=== PATIENT | female | born 1975 | race Caucasian/White ===

== ENCOUNTER 2016-09-25 09:22 | Day surgery (SDC) | payer OTHER ==
--- NOTE | 2016-09-16 03:37 | HP ---
PREOPERATIVE HISTORY AND PHYSICAL: DATE OF ADMISSION/SURGERY: 09/25/16 [facility] DATE OF OFFICE VISIT: 09/13/16 ATTENDING SURGEON: Dr. Parul Ordonez. (DICTATED BY ARVIND HERNANDEZ) PROCEDURE: Right arthroscopic surgery, arthroscopic partial meniscectomy. CHIEF COMPLAINT: Right knee pain. HISTORY OF PRESENT ILLNESS: Rossana is a 41-year-old female who presents to clinic for followup of ongoing right knee pain due to meniscus injury. She failed conservative measures and therefore agreed to undergo right knee arthroscopic surgery, arthroscopic partial meniscectomy with Dr. Ordonez on 09/25. PAST MEDICAL HISTORY: Hypothyroidism. PAST SURGICAL HISTORY: 1. Total thyroidectomy in 2006. 2. x2. Denies complications with anesthesia. MEDICATIONS: Levothyroxine sodium 112 mcg 1 by mouth every day. ALLERGIES: No known drug allergies. FAMILY HISTORY: Positive for heart disease, rheumatoid arthritis, and CMP. Her grandmother has a history of DVT. SOCIAL HISTORY: She lives with her spouse. 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 She denies tobacco or alcohol use. REVIEW OF SYSTEMS: General: Negative for fevers, chills, or night sweats. No known anesthesia problems. HEENT: Negative for headache, lightheadedness, or syncopal episodes. Integumentary: Negative for abrasions, lesions, or open wounds. Cardiothoracic: Negative for chest pain, palpitations, or edema. Negative for hypertension. Pulmonary: Negative for shortness of breath with exertion, chronic cough, or COPD. GI: Negative for nausea, vomiting, diarrhea , constipation, or GERD. : Negative for nocturia, urinary frequency, urinary urgency, history of UTIs, or kidney problems. Musculoskeletal: Positive for current complaint. Neurological: Negative for numbness, tingling , history of seizure, stroke, or epilepsy. Endocrine: Negative for diabetes. Positive for hypothyroidism. Heme: Negative for easy bruising, anemia, excessive bleeding, history of DVT, or PE. Infectious Disease: Negative for history of MRSA. PHYSICAL EXAMINATION GENERAL: Well-developed, well-nourished 41-year-old female, in no acute distress. Alert and oriented x3. Appropriate mood and affect. VITAL SIGNS: Height 64, weight 115, blood pressure 101/63, respiratory rate 13 , temperature 98.6, BMI 19.7. HEENT: Normocephalic, atraumatic. PERRLA. Throat clear. NECK: Supple. PULMONARY: Lungs clear to auscultation bilaterally. No wheezing, rhonchi, or rales. CARDIO: Regular rate and rhythm. S1, S2. No murmurs, gallops, or rubs. No edema. ABDOMEN: Positive bowel sounds. Soft, nontender. NEUROLOGIC: Alert and oriented x3. Cranial nerves grossly intact. Sensation intact to light touch. MUSCULOSKELETAL: Right lower extremity: Skin is intact. Trace effusion. Range of motion 0 to 120. Quadriceps atrophy. Tenderness over the lateral joint line. 1A Bibiana. Nontender to varus or valgus stress. Positive Jc. +2 dorsalis pedis pulse. Sensation intact to light touch distally. STUDIES: MRI revealed partial thickness tear of the ACL, lateral meniscus tear , and an LCL sprain. IMPRESSION: Right knee lateral meniscus tear. PLAN: The patient is scheduled to undergo a right knee arthroscopic surgery, arthroscopic partial meniscectomy with Dr. Ordonez on 09/25/16. She will return to the office 10 to 14 days postop for followup and suture removal. Percocet will be used for postoperative pain management. ARVIND HERNANDEZ [id number]/[facility] #: [id number] MTDD
[~2016-09-25 09:22] MED LIST: Buffered Lidocaine 0.9% SYRIN* 5 ML/SYR SYRINGE INTRADERM ONE; Dexamethasone IV* 4 MG/ML 1 ML (4 MG) IV SLOW PU ONE; Famotidine IV* 10 MG/ML 2 ML (20 mg) IV ONE
[2016-09-25] MEDS ORDERED: Buffered Lidocaine 0.9% SYRIN* 5 ML/SYR SYRINGE ONE (10:28)
[2016-09-25] MEDS ORDERED: Famotidine IV* 10 MG/ML 2 ML (20 mg) ONE (10:28)
[2016-09-25] MEDS ORDERED: Dexamethasone IV* 4 MG/ML 1 ML (4 MG) ONE (10:28)
[2016-09-25] MEDS ORDERED: ceFAZolin 2 GM PREMIX(*) 2 GM/50 ML BAG IVPB ONE (10:28)
[2016-09-25] MEDS ORDERED: Midazolam* 1 MG/ML 5 ML VIAL (5 MG) ONE (11:01)
[2016-09-25] MEDS ORDERED: Ketorolac INJ* 30 MG/ML 1 ML VIAL ONE (11:01)
[2016-09-25] MEDS ORDERED: Ondansetron INJ* 2 MG/ML VIAL ONE (11:01)
[2016-09-25] MEDS ORDERED: Chloroprocaine 2%* 20 ML VIAL ONE (11:01)
[2016-09-25] MEDS ORDERED: Propofol* 10 MG/ML 20 ML BTL IV PUSH ONE ×2 (11:01)
[2016-09-25] MEDS ORDERED: Bupivacaine 0.25% SDV* 30 ML ONE (11:49)
[2016-09-25] MEDS ORDERED: Bupivacaine 0.25% W/EPI* 50 ML VIAL ONE (11:53)
[2016-09-25] MEDS ORDERED: Bupivacaine 0.5% W/EPI SDV* 30 ML VIAL ONE (12:13)
[2016-09-25] MEDS ORDERED: DiMENhydriNATE IV* 50 MG/ML VIAL IV PUSH PRN (13:18)
[2016-09-25] MEDS ORDERED: Ondansetron INJ* 2 MG/ML VIAL IV PRN (13:18)
[2016-09-25] MEDS ORDERED: fentaNYL* 50 MCG/ML 2 ML VIAL (100 MCG VIAL) IV PRN (13:18)
[2016-09-25] MEDS ORDERED: oxyCODONE/Acetamin 5/325 MG* TAB PO PRN (13:18)
[2016-09-25 15:32] VITALS: BP 100/69
--- NOTE | 2016-09-29 04:45 | OP ---
CC: PCP OPERATIVE REPORT: DATE OF OPERATION: 09/25/16 DATE OF : 79 SURGEON: Parul Ordonez MD QA ARCHITECT: No assistant program manager was needed for this case. ANESTHESIOLOGIST: Dr. Weir. ANESTHESIA: Spinal with local MAC. PRE-OP DIAGNOSIS: Right knee partial tear in the ACL as well as lateral meniscus tear. POST-OP DIAGNOSIS: Partial tear of right ACL, lateral meniscus tear and plica. OPERATIVE PROCEDURE: Right knee arthroscopy with partial lateral meniscectomy as well as plica exci pietro. COMPLICATIONS: None. ESTIMATED BLOOD LOSS: Minimal. TOURNIQUET TIME: Zero minutes. INDICATIONS: Rossana Juarez is a 41-year-old female who sustained injury to her knee earlier thi s year. She has failed conservative management, which consisted of physical therapy and she had per sistent catching and locking and laterally based pain. She did have an ACL injury. She did not hav e complaints of instability. After an extensive discussion of the risks and benefits of surgical darius doron nonoperative treatment, she has elected to proceed with surgical treatment. Risks included, but are not limited to bleeding, infection, damage to nerves, vessels, surrounding structures, wound no nhealing, persistent pain, need for further surgery, stiffness, incomplete relief of symptoms, need for further surgery, risk of anesthesia, risk of DVT. She has elected to proceed. DESCRIPTION OF PROCEDURE: The patient was greeted in the preoperative area by the attending surgeon . Correct extremity was marked and consent was confirmed. The patient was brought back to the oper ating suite, where she was placed in supine position on the operating table. She was then sat up an d underwent spinal anesthesia, which she tolerated without difficulty. A tourniquet was placed high on the proximal right leg. A miniature surgical pause was then done and then the knee was intra-ar ticularly injected with 0.25% Marcaine with epi. The lateral post was positioned. Examination of t he knee was done under anesthesia and she was found to have full range of motion with 0 to 140 degre es, 1A Bibiana, stable to varus and valgus stress, negative posterior drawer, mild effusion. [facility] then [facility] and draped in the usual sterile beginning with chlorhexidine soap, scrub, a nd alcohol wipe and a final prep of ChloraPrep. After appropriate surgical pause indicating side, site, procedure, administration of antibiotics, th e standard anterior and lateral portal was made sharply with an 11 blade. The scope was introduced to the joint. The joint was examined and the scope was positioned in the suprapatellar pouch. Ther e were grade 0 changes to the patellofemoral joint. Lateral gutter was free of any loose tissue or debris. The medial gutter was secured by plica. The scope was introduced into the notch. The ACL was found to be intact, but there was evidence of partial tearing. The majority of the AM and PL bu ndles were intact as well. The PCL was intact. The scope was brought into the medial compartment. There were grade 0 to 1 changes in the medial femoral condyle and the medial tibial plateau. The m edial meniscus was probed and found to be stable. The knee was then placed in a [id number] posi tion and the lateral compartment was examined. There were grade 0 to 1 changes in the lateral femor al condyle and lateral tibial plateau. There was evidence of a full thickness bucket handle tear th at encompassed the middle to the posterior third of the meniscus. This was in the white-white zone. There was no evidence of hemorrhage. At this point, the biters and antonia were used to then perf orm a partial meniscectomy. She lost approximately 25% to may be 30% of her meniscus total. The te ar extended all the way to the vast majority. The meniscus was still intact. Once the partial meni scectomy was complete and all loose debris was removed, the knee was then placed in extension and th e electrocautery and shaver were used to remove the plica from the medial compartment. Once this wa s completely released, all fluid and debris was removed from the knee and the knee was thoroughly la vaged. The portals were closed with 3-0 nylon. The knee was intra-articularly injected with 0.25% Marcaine plain. Sterile dressings were applied as well as a cryo/Cuff. She was awoken from anesthe radha and transferred to the PACU in stable condition. POSTOPERATIVE PLAN: She will be weightbearing as tolerated. She will be discharged on her pain med ication. She will be discharged on aspirin for DVT prophylaxis; although, she has no personal or fa sunday history of DVT. I will see the patient back in 10 to 14 days. [id number]/[facility] #: [id number]
== END 2016-09-25 15:42 | disposition home or self-care (01) ==
LOC: OR 09:22
PROVIDERS: ATTEND Orthopaedic Surgery
DX: S83.251A Bucket-handle tear of lateral meniscus, current injury, right knee, initial encounter (principal); M67.51 Plica syndrome, right knee; E03.9 Hypothyroidism, unspecified; X58.XXXA Exposure to other specified factors, initial encounter; Y92.9 Unspecified place or not applicable
CPT/HCPCS: J0690; J1100; J1885; J2250; J2400; J2405; J2704

== ENCOUNTER 2018-07-23 11:00 | Observation (INO) | payer OTHER ==
[2018-07-23] MEDS ORDERED: Scopolamine 1.5 mg* PATCH ONE (11:53)
[2018-07-23] MEDS ORDERED: Naproxen TAB* 250 MG ONE (11:54)
[2018-07-23] MEDS ORDERED: Ondansetron INJ* 2 MG/ML VIAL ONE ×2 (11:54→12:37)
[2018-07-23] MEDS ORDERED: LORazepam TAB(*) 1 MG ONE (11:54)
[2018-07-23] MEDS ORDERED: oxyCODONE SR TAB(*) 10 MG TAB.SR ONE (11:54)
[2018-07-23] MEDS ORDERED: Clindamycin 900 MG/D5W BAG(*) 900 MG/50 ML BAG IVPB ONE (12:00)
[2018-07-23] MEDS ORDERED: Ketorolac INJ* 30 MG/ML 1 ML VIAL ONE (12:37)
[2018-07-23] MEDS ORDERED: VERAPAMIL 2.5 MG/ML 2 ML VIAL ** 5 mg/2 ml ONE (12:37)
[2018-07-23] MEDS ORDERED: fentaNYL* 50 MCG/ML 5 ML VIAL (250 MCG VIAL) ONE (12:37)
[2018-07-23] MEDS ORDERED: Midazolam* 1 MG/ML 5 ML VIAL (5 MG) ONE (12:37)
[2018-07-23] MEDS ORDERED: Heparin(*) 1000 UNIT/ML 10 ML VIAL CATH LAB IV ONE (12:37)
[2018-07-23] MEDS ORDERED: Heparin 2 UNITS/ML IVPREMIX* 2,000 UNIT/1,000 ML BAG IV ONE (12:38)
[2018-07-23] MEDS ORDERED: nitroGLYCERIN DRIP* 25,000 MCG/250 ML BTL ONE (12:38)
[2018-07-23] MEDS ORDERED: Lidocaine 1% INJ* 10 MG/ML 30 ML SDV ONE (12:39)
[2018-07-23] MEDS ORDERED: Iohexol 350 (CONTRAST) 200 ML MDV IV ONE (12:46)
[2018-07-23] MEDS ORDERED: HYDROmorphone PCA* 20 MG/20 ML PCA.SYRING ONE (14:06)
[2018-07-23] MEDS ORDERED: PROCHLORPERAZINE INJ 5 MG/ML 2 ML VIAL ONE ×2 (14:25→18:23)
[2018-07-23] MEDS ORDERED: Norepinephrine VIAL* 1 MG/ML 4 ML VIAL ONE (14:31)
[2018-07-23] MEDS ORDERED: Atropine SYRINGE* 0.1 MG/ML 10 ML SYRINGE (1 MG) ONE (14:48)
[2018-07-23] MEDS: NS 0.9% 1000 ML** 2,000 ML IV SCH ×2 (16:49→17:21)
[2018-07-23 17:09] LABS: ABS Basophils 0 10^3/ul (0-0.2); ABS Eosinophils 0 10^3/ul (0-0.6); ABS Lymphocytes 0.7 10^3/ul (1.0-4.8); ABS Monocytes 0.4 10^3/ul (0-0.8); ABS Neutrophils 6.3 10^3/ul (1.5-7.7); ABS Nucleated RBC 0 10^3/ul; Eosinophil % 0.4 %; Hematocrit 29 % (33-41); Hemoglobin 9.6 g/dL (12.0-16.0); Lymphocyte % 9.3 %; Mean Corpuscular HGB Conc 33 g/dL (31-36); Mean Corpuscular Hemoglobin 30 pg (27-31); Mean Corpuscular Volume 90 fL (80-97); Mean Platelet Volume 7.4 fL (7.4-10.4); Nucleated Red Blood Cells % 0; Platelet Count 209 10^3/uL (150-450); Red Blood Count 3.23 10^6 /uL (3.70-4.87); Red Cell Distribution Width 12 % (10.5-15); White Blood Count 7.5 10^3/uL (3.5-10.8)
[2018-07-23 17:32] LABS: Calcium 7.1 mg/dL (8.6-10.3); Magnesium 1.7 mg/dL (1.9-2.7); Potassium 4.2 mmol/L (3.5-5.0)
[2018-07-23 17:37] LABS: BUN/Creatinine Ratio 15.7 (8-20); EGFR African American 111.6 (>60); EGFR Non-African American 92.2 (>60)
[2018-07-23] MEDS ORDERED: Magnesium Sulfate 2 GM IV* 2 GM/50 ML BAG IVPB ONE (17:45)
[2018-07-23] MEDS ORDERED: PROCHLORPERAZINE INJ 5 MG/ML 2 ML VIAL IV PRN (17:50)
--- NOTE | 2018-07-23 18:43 | PN ---
Progress Note - Progress Note Date of Service: 07/23/18 SOAP: Subjective: Patient rates pelvic pain at 6/10. +/- nausea if she moves too much, but no emesis. Objective: Selected Entries 07/23/18 07/23/18 07/23/18 17:40 17:51 18:00 Pulse Rate 74 64 65 Blood Pressure 95/65 87/57 85/63 (mmHg) Blood Pressure Mean O2 Sat by Pulse Oximetry Patient on Room Air 07/23/18 07/23/18 07/23/18 18:01 18:10 18:15 Pulse Rate 64 62 Blood Pressure 86/61 (mmHg) Blood Pressure 66 Mean O2 Sat by Pulse 95 Oximetry Patient on Room Yes Air Sleeping, but arousable to voice AAO x 3, NAD Abd is soft, tender when palpating uterine fundus No rebound tenderness 1+ pulse palpated at left radial artery, soft, no ecchymosis Tegaderm covering small amount of dry blood Left hand is warm to touch Motor function is grossly intact, SILT at distribution of left R/M/U nerves Assessment: 43 YOF status Uterine Fibroid Arterial Embolization from left radial arteriomy. Case was complicated by exacerbation of the patient's baseline low BP with bradycardia. Patient received Levophed 32 mcg and Atropine 0.5 mg intraprocedure that restored BP and HR close to her baseline. Currently her BP is maintained with IVF. Plan: 1. Per conversation with Dr. Condon and Dr. Dawson, ICU overnight admission is appropriate to more closely monitor hemodynamics. 2. Otherwise routine post UFE IR protocol as ordered.
[2018-07-23] MEDS: NS 0.9% 1000 ML** 1,000 ML IV SCH (18:58)
--- NOTE | 2018-07-23 20:00 | HP ---
CC: Dr. Shun Miller; Dr. Davie Multani * HISTORY AND PHYSICAL: DATE OF ADMISSION: 07/23/18 TIME OF EVALUATION: 5:30 p.m. PRIMARY CARE PROVIDER: Shun Miller MD INTERVENTIONAL RADIOLOGIST: Davie Multani MD CHIEF COMPLAINT: "I am dizzy." HISTORY OF PRESENT ILLNESS: Mrs. Juarez is a 43-year-old lady with a past medical history of thyroid cancer status post thyroidectomy with subsequent hypothyroidism, depression, prior history of anorexia, mitral valve prolapse, uterine fibroids who [place] [facility] [place] uterine fibroid embolization. The patient saw Dr. Multani as outpatient regarding severe pelvic pain and heavy menstrual bleeding. Her pelvic ultrasound demonstrated 1 large well circumscribed 7.8 cm uterine fibroid and decision was made to pursue UFE for symptom control. The patient underwent the procedure today and as per Dr. Multani's report, the patient had episodes of bradycardia during the procedure. Of note is the fact that the patient is very fit, a runner, but later on during the procedure, she also developed hypotension that at one point reached a systolic of 56 and the patient required Levophed. At the time of my evaluation, the patient was already in the PACU. She has complaints of mild nausea and some dizziness while moving in bed, but otherwise she offers no other complaints. PAST MEDICAL HISTORY: 1. Thyroid cancer in 2006 status post thyroidectomy, now with hypothyroidism. 2. Depression. 3. History of anorexia nervosa. As per records in 1999, the patient has a history of "an NV" due to electrolyte imbalances secondary to her anorexia with a reported normal echo. The patient does not recall much of what happened around that time, but denies having issues with anorexia at this time. 4. Mitral valve prolapse. 5. Anxiety. 6. Status post in 2003 and 2007. MEDICATION LIST: 1. Tylenol/codeine 30 mg half a tablet p.o. q.6 hours p.r.n. pain. 2. Levothyroxine 112 mcg p.o. daily. 3. Ibuprofen 400 mg p.o. q.4 hours p.r.n. pain. ALLERGIES: No known drug allergies. FAMILY HISTORY: There is a history of heart disease, rheumatoid arthritis, and diabetes in remote family members, but her father and mother are alive and well. SOCIAL HISTORY: There is no history of tobacco or drug use. She occasionally consumes wine. 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 Surrogate decision maker is her , Pop Juarez, phone number is [phone]. REVIEW OF SYSTEMS: Limited, as the patient is still a little sedated after the procedure; but, as much as possible, a 14-point review of systems was performed and all pertinent negative and positive findings are in the HPI. PHYSICAL EXAMINATION GENERAL: The patient is a pleasant thin lady, lying in the bed in the PACU area , in no acute distress. VITAL SIGNS: Temperature 98.1, heart rate 74, respiratory rate 18, oxygen saturation 99% on room air, blood pressure is 95/65. HEENT: Moist mucous membranes. The patient has a scopolamine patch behind her right ear. CHEST: Breath sounds are present bilaterally with no added sounds. CVS: Normal S1, S2. Regular rate and rhythm. No murmurs. ABDOMEN: Soft. Bowel sounds are present. EXTREMITIES: No edema. The patient has post procedure band on her left wrist. NEURO: She is a little sleepy, but arousable to voice. Oriented x3. Able to move all 4 extremities. DIAGNOSTIC STUDIES/LAB DATA: Labs done after the procedure include a CBC with a WBC of 7.5, hemoglobin 9.6, hematocrit of 29, platelets of 209 with 84% neutrophils. Chemistry showed sodium 139, potassium 4.2, chloride 114, bicarb of 21, BUN of 11, creatinine of 0.7, glucose 105. Calcium 7.1, magnesium of 1.7. ASSESSMENT AND PLAN: Mrs. Juarez is a 43-year-old lady with a past medical history of thyroid cancer status post thyroidectomy, hypothyroidism, depression , prior history of anorexia nervosa with cardiac issues 20 years ago, mitral valve prolapse, anxiety, uterine fibroids who presented for an elective UFE who developed bradycardia and hypotension during the procedure. 1. Hypertension and bradycardia. Suspect this could have been a vagal phenomenon during the procedure and she seems to be responding well to IV fluids at this time. As she had significant hypotension with the systolic in the 50s requiring pressors, she will be admitted to the intensive care unit overnight and we will continue fluid resuscitation and cardiac monitoring. As per the patient's , she never had a syncopal episode, but she did have near syncopal episodes in the past, especially when getting out of a hot tub. We will replete her magnesium and we will also monitor her H and H. At the time of my evaluation, the patient is responding to IV hydration and I do not think further pressors will be necessary. 2. Uterine fibroids status post UFE. We will follow the post procedure protocol as per Dr. Multani with pain management with Dilaudid, PHLEBOTOMY LAB ASSISTANT and Toradol. 3. Hypothyroidism. We will continue her levothyroxine. 4. DVT prophylaxis. The patient has a score of 3 on the DVT Prophylaxis Risk Assessment Guide and she will have SCDs for now in the immediate post procedure period. 5. Code status is full. Her primary care provider, Dr Miller, was informed of her admission and will assume her care in the morning. Signed out to Dr London for night coverage. TIME SPENT: Approximately 50 minutes was spent with patient and interview, medical records review, physical examination to complete the admission; more than half of this time was spent [id number] with the patient and coordination of care. [id number]/[facility] #: [id number] IVETTE
[2018-07-23] MEDS ORDERED: HYDROmorphone PCA* 20 MG/20 ML PCA.SYRING PCA SCH (22:00)
[2018-07-23] MEDS: Ketorolac INJ* 15 MG/ML 1 ML VIAL IV PUSH SCH (22:12)
[2018-07-23] MEDS: Ondansetron INJ* 2 MG/ML VIAL IV SCH (22:18)
[2018-07-24] MEDS: NS 0.9% 1000 ML** 1,000 ML IV SCH (01:24)
[2018-07-24] MEDS: Ondansetron INJ* 2 MG/ML VIAL IV SCH ×2 (03:15→07:39)
[2018-07-24] MEDS: Ketorolac INJ* 15 MG/ML 1 ML VIAL IV PUSH SCH ×2 (03:17→07:39)
[2018-07-24 05:34] LABS: ABS Basophils 0 10^3/ul (0-0.2); ABS Eosinophils 0 10^3/ul (0-0.6); ABS Lymphocytes 0.6 10^3/ul (1.0-4.8); ABS Monocytes 0.6 10^3/ul (0-0.8); ABS Neutrophils 9.3 10^3/ul (1.5-7.7); ABS Nucleated RBC 0 10^3/ul; Eosinophil % 0 %; Hematocrit 30 % (33-41); Lymphocyte % 5.5 %; Mean Corpuscular HGB Conc 33 g/dL (31-36); Mean Corpuscular Hemoglobin 30 pg (27-31); Mean Corpuscular Volume 92 fL (80-97); Nucleated Red Blood Cells % 0; Platelet Count 211 10^3/uL (150-450); Red Blood Count 3.29 10^6 /uL (3.70-4.87); Red Cell Distribution Width 13 % (10.5-15); White Blood Count 10.5 10^3/uL (3.5-10.8)
[2018-07-24 05:52] LABS: BUN/Creatinine Ratio 18.8 (8-20); Calcium 7.4 mg/dL (8.6-10.3); EGFR African American 113.4 (>60); EGFR Non-African American 93.8 (>60); Magnesium 2.1 mg/dL (1.9-2.7); Potassium 4.2 mmol/L (3.5-5.0)
[2018-07-24] MEDS ORDERED: Levothyroxine TAB* 112 MCG TAB PO SCH (06:00)
--- NOTE | 2018-07-24 07:42 | PN ---
Progress Note - Progress Note Date of Service: 07/24/18 SOAP: Subjective: Patient reports pelvic cramping rated 2-6/10, "feels like a bad period cramp". Intermittent nausea. +Emesis during my rounding with clear liquid and scattered mucus. + void. Objective: Selected Entries 07/24/18 07/24/18 04:00 07:00 Temperature 99.2 F Heart Rate 57 Respiratory 15 Rate Blood Pressure 102/61 (mmHg) Blood Pressure 65 Mean O2 Sat by Pulse 96 Oximetry Patient vomited at the onset of my evaluation. Afterwards, NAD AAO x 3 Uterine fundus is tender to palpation, but abdomen is otherwise soft 2+ pulse at left radial artery No bleeding or hematoma at left radial arteriotomy site Left hand exhibits intact motor function and sensation to light touch Assessment: 43 YOF POD #1 status post Uterine Fibroid Artery Embolization from left radial arteriotomy with reasonable pain control. Nausea & emesis persist. Hypotension and bradycardia from yesterday was not an issue overnight. Plan: 1. Add compazine 5 mg IV Q 6 hours- increase to 10 mg if necessary. 2. Eat small breakfast after compazine (toast, oatmeal, etc). 3. D/C MANAGER UNION and other IV meds. 4. Outpatient regimen will likely be: Toradol 10 mg PO Q 6 hours x 3 days (Dispense #15 with one refill) AFTER Toradol is complete: Ibuprofen 400 mg PO Q 6 hours OR Naprosyn 225 mg PO Q 8 hours for 3-5 days (do not take both) [place] 5/325, take 1 or 2 tablets by mouth Q 6 hours PRN breakthrough pain ( Dispense #40) Compazine 5 mg PO every 6 hours x 7 days. (Dispense #30 with one refill) Scopolamine 1.5 mg transdermal to mastoid process. On 07/19/18 at 900 AM, remove current patch, replace with new patch and wear x 3 days. Compazine 5 mg PO every 6 hours x 7 days. (Dispense 5. At home, patient and her Cooper advised to purchase laxative tea daily (For example, "Smooth Move") and drink one cup daily for one week.
--- NOTE | 2018-07-24 08:03 | PN ---
Subjective - Subjective Reason for Note: Progress Note History: Discharge summary: I have reviewed the events of the past 24 hours with the patient's direct history and also the records Dr. Davie Multani and Dr. Chong Cnodon. She required pressors and IV saline to raise her BP following severe hypotension from an embolization procedure for uterine myoma. She is in the ICU and is feeling better this morning. She has her menstrual period and states with the embolization this feels like heavy cramping. She has no symptoms of hypocalcemia - no paresthesia, tetany. Active Problems: Active Problems Hypocalcemia (Acute) E83.51 Status post embolization of uterine artery (Acute) Z98.890 Uterine myoma (Acute) D25.9 Vasovagal episode (Acute) R55 Hx of papillary thyroid carcinoma (Chronic) Z85.850 Postoperative hypothyroidism (Chronic) E89.0 Current Medications: Current Medications Sodium Chloride (Ns 0.9% 1000 Ml) 1,000 mls @ 200 mls/hr IV PER RATE [facility] Last Admin: 07/24/18 01:24 Dose: 200 mls/hr Sodium Chloride (Ns 0.9% 1000 Ml) 2,000 mls @ 1,000 mls/hr IV WIDE OPEN JESUS[facility] Stop: 07/24/18 18:44 Last Admin: 07/23/18 17:21 Dose: 1,000 mls/hr Hydromorphone HCl (Dilaudid Check Processing Clerk*) 20 mg in 20 mls @ 0 mls/hr [employer] .change Q24H JESUSITA; Protocol Ketorolac Tromethamine (Toradol Inj*) 10 mg IV PUSH Q6H [facility] Last Admin: 07/24/18 07:39 Dose: 10 mg Levothyroxine Sodium (Synthroid Tab*) 112 mcg PO 0600 [facility] Last Admin: 07/24/18 06:08 Dose: 112 mcg Ondansetron HCl (Zofran Inj*) 4 mg IV Q6H [facility] Last Admin: 07/24/18 07:39 Dose: 4 mg Prochlorperazine Edisylate (Compazine Inj*) 5 mg IV Q6H PRN PRN Reason: NAUSEA/VOMITING Last Admin: 07/23/18 18:23 Dose: 5 mg - Review of Systems Constitutional Symptoms: Yes: Fatigue, Night Sweats Pulmonary: Negative: Cough, Sputum, Respiratory Distress Cardiology: Positive: Syncope - yesterday Negative: Chest Pain, Shortness of Breath, Palpitations, Edema Gastroenterology: Positive: Anorexia Negative: Abdominal Pain, Nausea, Vomiting, Change in Bowel Habits Genital - Urinary: Positive: Other - she is urinating normally. Negative: Dysuria, Hematuria Home Medications: Home Medications Medication Instructions Recorded Confirmed Type Ibuprofen [Ibuprofen 200 MG] 400 cap PO Q4HR PRN 09/18/16 07/22/18 History Levothyroxine TAB* [Synthorid 112 112 mcg PO QAM 09/18/16 07/22/18 History MCG TAB*] Acetaminop/Codeine 30 MG TAB* 0.5 tab PO Q6H PRN 07/22/18 07/22/18 History [Tylenol/Codeine 30 MG TAB*] Allergies: Allergies Allergy/AdvReac Type Severity Reaction Status Date / Time seasonal Allergy Intermediate Eyes Uncoded 09/25/16 10:34 Itchy/Swollen/Red/Watery Objective - Vital Signs Vital Signs: Vital Signs 07/23/18 07/23/18 07/23/18 11:33 11:37 12:07 Temperature Pulse Rate 57 Respiratory 5 16 17 Rate Blood Pressure 108/70 106/74 (mmHg) O2 Sat by Pulse 100 Oximetry 07/23/18 07/23/18 07/23/18 12:12 12:17 12:22 Temperature Pulse Rate Respiratory 18 16 17 Rate Blood Pressure 103/70 108/76 109/73 (mmHg) O2 Sat by Pulse Oximetry 07/23/18 07/23/18 07/23/18 13:28 15:15 15:34 Temperature 97.2 F Pulse Rate 115 78 Respiratory 17 Rate Blood Pressure (mmHg) O2 Sat by Pulse Oximetry 07/23/18 07/23/18 07/23/18 15:35 15:45 15:52 Temperature Pulse Rate 71 71 68 Respiratory 16 Rate Blood Pressure 91/63 90/65 90/65 (mmHg) O2 Sat by Pulse 98 99 100 Oximetry 07/23/18 07/23/18 07/23/18 16:00 16:02 16:15 Temperature Pulse Rate 72 71 71 Respiratory Rate Blood Pressure 88/59 86/55 (mmHg) O2 Sat by Pulse 100 99 97 Oximetry 07/23/18 07/23/18 07/23/18 16:30 16:32 16:33 Temperature Pulse Rate 76 65 67 Respiratory Rate Blood Pressure 79/52 70/43 71/41 (mmHg) O2 Sat by Pulse 96 96 94 Oximetry 07/23/18 07/23/18 07/23/18 16:45 17:00 17:02 Temperature 98.1 F Pulse Rate 65 61 64 Respiratory Rate Blood Pressure 85/55 89/58 (mmHg) O2 Sat by Pulse 96 95 95 Oximetry 07/23/18 07/23/18 07/23/18 17:10 17:20 17:30 Temperature Pulse Rate 68 94 71 Respiratory Rate Blood Pressure 85/57 81/46 94/63 (mmHg) O2 Sat by Pulse 96 94 97 Oximetry 07/23/18 07/23/18 07/23/18 17:40 17:51 18:00 Temperature Pulse Rate 74 64 65 Respiratory Rate Blood Pressure 95/65 87/57 85/63 (mmHg) O2 Sat by Pulse 99 95 96 Oximetry 07/23/18 07/23/18 07/23/18 18:01 18:10 18:21 Temperature Pulse Rate 64 62 70 Respiratory Rate Blood Pressure 86/61 91/53 (mmHg) O2 Sat by Pulse 93 95 95 Oximetry 07/23/18 07/23/18 07/23/18 18:30 18:40 18:50 Temperature Pulse Rate 77 72 64 Respiratory Rate Blood Pressure 82/53 80/52 86/56 (mmHg) O2 Sat by Pulse 94 94 92 Oximetry 07/23/18 07/23/18 07/23/18 19:00 19:01 19:10 Temperature 98.1 F Pulse Rate 62 61 63 Respiratory Rate Blood Pressure 86/53 83/60 (mmHg) O2 Sat by Pulse 92 92 92 Oximetry 07/23/18 07/23/18 07/23/18 19:20 19:40 19:49 Temperature 98.3 F 98.3 F Pulse Rate 67 62 Respiratory 12 Rate Blood Pressure 89/58 94/58 (mmHg) O2 Sat by Pulse 93 90 Oximetry 07/23/18 07/23/18 07/23/18 19:52 19:54 20:00 Temperature 98.3 F Pulse Rate 60 Respiratory 12 13 12 Rate Blood Pressure 85/57 94/58 (mmHg) O2 Sat by Pulse 98 91 Oximetry 07/23/18 07/23/18 07/23/18 20:01 20:15 20:30 Temperature Pulse Rate 71 59 61 Respiratory 24 11 14 Rate Blood Pressure 91/61 93/62 (mmHg) O2 Sat by Pulse 88 99 100 Oximetry 07/23/18 07/23/18 07/23/18 20:45 20:52 21:00 Temperature 101.2 F Pulse Rate 59 56 Respiratory 12 12 13 Rate Blood Pressure 89/61 94/62 (mmHg) O2 Sat by Pulse 99 99 100 Oximetry 07/23/18 07/23/18 07/23/18 21:01 21:30 22:00 Temperature Pulse Rate 57 58 56 Respiratory 13 12 12 Rate Blood Pressure 97/58 97/59 (mmHg) O2 Sat by Pulse 100 100 99 Oximetry 07/23/18 07/23/18 07/23/18 22:01 22:52 23:00 Temperature 98.4 F Pulse Rate 60 55 Respiratory 13 13 12 Rate Blood Pressure (mmHg) O2 Sat by Pulse 99 100 100 Oximetry 07/23/18 07/23/18 07/23/18 23:17 23:30 23:50 Temperature Pulse Rate 55 54 55 Respiratory 13 12 12 Rate Blood Pressure 97/65 95/61 (mmHg) O2 Sat by Pulse 100 100 100 Oximetry 07/24/18 07/24/18 07/24/18 00:00 00:14 00:30 Temperature Pulse Rate 56 58 Respiratory 14 14 14 Rate Blood Pressure 103/60 96/62 (mmHg) O2 Sat by Pulse 100 100 100 Oximetry 07/24/18 07/24/18 07/24/18 01:00 01:30 02:00 Temperature Pulse Rate 56 56 63 Respiratory 13 12 10 Rate Blood Pressure 88/57 95/60 86/72 (mmHg) O2 Sat by Pulse 100 100 100 Oximetry 07/24/18 07/24/18 07/24/18 02:01 02:30 03:00 Temperature Pulse Rate 63 55 59 Respiratory 10 13 15 Rate Blood Pressure 81/56 92/65 (mmHg) O2 Sat by Pulse 100 100 100 Oximetry 07/24/18 07/24/18 07/24/18 03:01 03:15 03:30 Temperature 99.5 F Pulse Rate 57 89 Respiratory 13 16 Rate Blood Pressure 98/67 (mmHg) O2 Sat by Pulse 100 100 Oximetry 07/24/18 07/24/18 07/24/18 04:00 04:01 04:30 Temperature 99.2 F Pulse Rate 71 59 57 Respiratory 14 14 12 Rate Blood Pressure 93/61 88/55 (mmHg) O2 Sat by Pulse 96 98 97 Oximetry 07/24/18 07/24/18 07/24/18 05:00 05:01 05:30 Temperature Pulse Rate 59 58 69 Respiratory 12 13 14 Rate Blood Pressure 86/56 101/58 (mmHg) O2 Sat by Pulse 98 97 95 Oximetry 07/24/18 07/24/18 07/24/18 06:00 06:30 07:00 Temperature Pulse Rate 58 58 56 Respiratory 7 13 15 Rate Blood Pressure 79/53 89/59 102/61 (mmHg) O2 Sat by Pulse 97 97 96 Oximetry - Intake and Output Intake and Output: Intake & Output 07/21/18 07/22/18 07/23/18 07/24/18 11:59 11:59 11:59 11:59 Intake Total 4384 Output Total 430 Balance 3954 Weight 120 lb 13.013 oz Intake: IV Fluids 4384 0.9 2000 NS (0.9%) 534 Output: Urine 250 Ayala 180 ADLs: Meal Record Start: 07/23/18 19: 49 Freq: 09,13,18 Status: Active Protocol: Created 07/23/18 19:49 System (Rec: 07/23/18 19:49 System [id number]) Intake and Output Start: 07/23/18 19: 49 Freq: Q1HR Status: Active Protocol: Created 07/23/18 19:49 System (Rec: 07/23/18 19:49 System [id number]) Document 07/23/18 20:21 [id number] (Rec: 07/23/18 20:21 [id number]) Document 07/23/18 21:00 [id number] (Rec: 07/23/18 21:03 [id number]) Document 07/23/18 22:00 [id number] (Rec: 07/23/18 22:26 [id number]) Document 07/23/18 23:00 [id number] (Rec: 07/23/18 23:54 [id number]) - Physical Exam General Physical Exam Comment: She is warm and well perfused. She is alert, oriented and no distress. She is hemodynamically stable. Chvostek's sign negative. General: No Cyanosis, No Anemia, No Jaundice, No Clubbing Endocrine: No Central Obesity, No Hirsuitism, No Virilism, No Acromegaly, No Vitiligo, No Flushing, No Acanthosis nigricans, No Violaceious striae, No Shavon Syndrome, No Buccal pigmenatation, No Bowling Crease Pigmentation Lungs and Chest: Yes: Chest Expansion Full, Chest Expansion Symetrica, Percussion Note Resonant, Vessicular Breath Sounds. No: Crackles, Wheezes Heart Rate and Rhythm: Bradycardia JVP: Not Elevated Additional Cardiovascular: Yes: Normal Heart Sounds. No: Heart Murmur, Pedal Edema Abdominal Exam: Yes: Soft, Abdominal Mass - right pelvic mass from large fibroid tumor, Abdominal Tenderness - right lower quadrant, Bowel Sounds Present. No: Distention, Guarding, Rebound Tenderness Results - Results Lab Results: Laboratory Results - last 24 hr 07/23/18 07/23/18 07/23/18 11:45 15:08 17:00 WBC RBC Hgb Hct MCV MCH MCHC RDW Plt Count MPV Neut % (Auto) Lymph % (Auto) [place] % (Auto) Eos % (Auto) Baso % (Auto) Absolute Neuts (auto) Absolute Lymphs (auto) Absolute Monos (auto) Absolute Eos (auto) Absolute Basos (auto) Absolute Nucleated RBC Nucleated RBC % Sodium 139 Potassium 4.2 Chloride 114 H Carbon Dioxide 21 L Anion Gap 4 BUN 11 Creatinine 0.70 Est GFR ( Amer) 111.6 Est GFR (Non-Af Amer) 92.2 BUN/Creatinine Ratio 15.7 Glucose 105 H POC Glucose (mg/dL) 132 H Calcium 7.1 L Magnesium 1.7 L Beta HCG, Quant < 0.60 Cortisol 23.36 07/23/18 07/24/18 07/24/18 17:00 04:55 04:55 WBC 7.5 10.5 RBC 3.23 L 3.29 L Hgb 9.6 L 10.0 L Hct 29 L 30 L MCV 90 92 MCH 30 30 MCHC 33 33 RDW 12 13 Plt Count 209 211 MPV 7.4 8.0 Neut % (Auto) 84.8 88.5 Lymph % (Auto) 9.3 5.5 [place] % (Auto) 5.2 5.9 Eos % (Auto) 0.4 0 Baso % (Auto) 0.3 0.1 Absolute Neuts (auto) 6.3 9.3 H Absolute Lymphs (auto) 0.7 L 0.6 L Absolute Monos (auto) 0.4 0.6 Absolute Eos (auto) 0 0 Absolute Basos (auto) 0 0 Absolute Nucleated RBC 0 0 Nucleated RBC % 0 0 Sodium 139 Potassium 4.2 Chloride 114 H Carbon Dioxide 20 L Anion Gap 5 BUN 13 Creatinine 0.69 Est GFR ( Amer) 113.4 Est GFR (Non-Af Amer) 93.8 BUN/Creatinine Ratio 18.8 Glucose 102 H POC Glucose (mg/dL) Calcium 7.4 L Magnesium 2.1 Beta HCG, Quant Cortisol Assessment - Problem List Assessment: Patient Problems Hypocalcemia (Acute) Status post embolization of uterine artery (Acute) Uterine myoma (Acute) Vasovagal episode (Acute) Hx of papillary thyroid carcinoma (Chronic) Postoperative hypothyroidism (Chronic) Plan: Status post embolization of uterine artery (Acute)Uterine myoma (Acute) Vasovagal episode (Acute) She had an episode of severe hypovolemia following the embolization therapy for her uterine myoma. 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 In my office she usually runs a BP of 100/60 and pulse 60. I think she had an exuberant vasovagal response to the procedure. She may have had a low volume to start off with. This morning she has recovered. If she eats a normal breakfast and mobilizes normally, I will discharge her. Hypocalcemia (Acute) This may be dilutional. However, given her previous total thyroidectomy, I will check her intact PTH and vitamin D levels. She will have some TUMS for a few days. She has no signs of latent tetany. Secondary diagnoses Hx of papillary thyroid carcinoma (Chronic) Postoperative hypothyroidism (Chronic) I discussed the above with the patient and she knows she may be fatigued for a day or two following this hypovolemia. I also discussed with her the symptoms of hypocalcemia.
[2018-07-24] MEDS ORDERED: Calcium Carbonate CHEW TAB* 500 MG (TUMS) PO ONE (08:11)
[2018-07-24] MEDS ORDERED: PROCHLORPERAZINE INJ 5 MG/ML 2 ML VIAL ONE (08:29)
[2018-07-24] MEDS ORDERED: Cholecalciferol TAB* 1000 UNITS PO SCH (09:00)
[2018-07-24] MEDS ORDERED: PROCHLORPERAZINE INJ 5 MG/ML 2 ML VIAL IV ONE (09:00)
[2018-07-24] MEDS ORDERED: HYDROcodone/ACETAMIN 5-325 MG* 1 TAB PO PRN (09:32)
[2018-07-24] MEDS ORDERED: Prochlorperazine TAB* 5 MG PO SCH (10:00)
[2018-07-24] MEDS ORDERED: Ketorolac TAB * 10 MG TAB PO SCH (10:00)
[2018-07-24 13:12] VITALS: BP 100/61
[2018-07-24] MEDS ORDERED: Prochlorperazine TAB* 5 MG PO ONE (13:15)
== END 2018-07-24 13:55 | disposition home or self-care (01) ==
LOC: CHICATH 11:00 → ICU 19:41 → INTOOBSV 19:41
PROVIDERS: ADMIT Internal Medicine; ATTEND Internal Medicine
DX: N92.4 Excessive bleeding in the premenopausal period (principal); Z85.850 Personal history of malignant neoplasm of thyroid; F32.9 Major depressive disorder, single episode, unspecified; I25.2 Old myocardial infarction; I34.1 Nonrheumatic mitral (valve) prolapse; F41.9 Anxiety disorder, unspecified; E83.51 Hypocalcemia; Z98.890 Other specified postprocedural states; D25.9 Leiomyoma of uterus, unspecified; R55 Syncope and collapse; E89.0 Postprocedural hypothyroidism
CPT/HCPCS: 36415; 37243; 75736; 76937; 80048; 82533; 83735; 84702; 85025; 87641; 96372; 96374; 96375; 96376; 99156; 99157; A9270-GY; C1769; C1884; C1887; G0378; J0461; J0780; J1170; J1644; J1885; J2250; J2405; J3010; J3475